=== PATIENT | female | born 1970 | race Two or more races ===

== ENCOUNTER 2017-03-08 23:27 | Emergency (ER) | payer BC ==
[~2017-03-08] VITALS: Ht 165.1 cm; Wt 55.0 kg
[2017-03-08] MEDS ORDERED: LIDOCAINE 1%, 20ML ONE (23:46)
[2017-03-09] MEDS ORDERED: LIDOCAINE 1%, 20ML INFIL ONE
[2017-03-09] MEDS ORDERED: DIPH,PERTUSS(ACELL),TET VAC/PF 0.5 ML IM-VACC ONE ×2 (01:03→01:30)
[2017-03-09 01:12] VITALS: BP 122/68
== END 2017-03-09 01:15 | disposition home or self-care (01) ==
LOC: ED 23:59
DX: S01.112A Laceration without foreign body of left eyelid and periocular area, initial encounter (principal); S06.0X0A Concussion without loss of consciousness, initial encounter; W19.XXXA Unspecified fall, initial encounter; Y93.89 Activity, other specified; Y92.89 Other specified places as the place of occurrence of the external cause; Y99.8 Other external cause status
CPT/HCPCS: 70450; 90471; 90715